=== PATIENT | male | born 1970 | race African-American/Black ===

== ENCOUNTER 2018-11-02 13:46 | Emergency (ER) | payer MEDICARE, MEDICAID ==
[~2018-11-02] VITALS: Ht 172.7 cm; Wt 72.7 kg
[~2018-11-02 13:46] MED LIST: BUPR300T53 PO; OLAN15TA2 PO; PANT40TA25 PO; QUET300XR PO; TRAZ-220 PO
[2018-11-02 17:01] LABS: INFLUENZA TYPE A NEGATIVE FOR TYPE A (NEGATIVE); INFLUENZA TYPE B NEGATIVE FOR TYPE B (NEGATIVE)
[2018-11-02 17:26] VITALS: BP 142/68
== END 2018-11-02 17:30 | disposition home or self-care (01) ==
LOC: EMS 13:46
DX: J40 Bronchitis, not specified as acute or chronic (principal); R03.0 Elevated blood-pressure reading, without diagnosis of hypertension; M79.10 Myalgia, unspecified site; R11.10 Vomiting, unspecified; F32.9 Major depressive disorder, single episode, unspecified
CPT/HCPCS: 87804